=== PATIENT | male | born 2000 | race African-American/Black ===

== ENCOUNTER 2024-11-27 09:24 | Emergency (ER) | payer SELFPAY ==
[2024-11-27 09:28] VITALS: BP 126/77
--- NOTE | 2024-11-27 10:14 | ED.GENMED ---
History of Present Illness
General
Chief Complaint: Exposure-Chemical
Source: patient
Time Seen by Provider: 11/27/24 09:57
History of Present Illness
History of Present Illness:
23-year-old male with no significant past medical history presenting to the emergency department for evaluation after he was at work and cut a pipe, unbeknownst to him at the time, the pipe had Freon within it and was exposed to the Freon for about
15 minutes. Patient began to feel lightheaded and has a mild headache presently with the lightheadedness resolving but still with headache. Patient denies any other symptoms, states none of the Freon got onto his clothing or skin, no chest pain or
shortness of breath, no focal weakness or numbness, no other concerns. Patient did not take any medications prior to arrival
Past History
Past History
ED Past Medical History: None
ED Past Surgical History: None
Social History
Tobacco: Non-smoker
Alcohol: None
Drug: None
Personal: Single
Living: with family
Employment: Employed
Review of Systems
Review of Systems
All Other Systems: ROS reviewed and negative except as documented in HPI and ROS
Phy Exam
Physical Exam
Physical Exam:
GENERAL: Alert , in no apparent distress
HEAD: NCAT
EYE: conjunctiva clear
NECK: Supple
ENT: o/p clr, mmm.
CARDIAC: Regular rate and rhythm
LUNGS: Clear breath sounds bilaterally, no acute respiratory distress, no wheezes/rales/rhonchi
NEUROLOGICAL: Alert and oriented
SKIN: Warm and dry, skin intact.
MUSCULOSKELETAL: well perfused.
PSYCH: Normal and appropriate interaction.
Scores
Heart Failure Risk
Heart Failure Risk Score: Not Applicable
Heart Score for Chest Pain Patients
STEMI patient?: Not applicable
Withdrawal Assessment of Alcohol
Withdrawal Assessment Completed?: Not applicable
Course
Orders/Labs/Results
Orders:
Orders
11/27/24 10:06
Ibuprofen [Motrin] 600 mg PO NOW STA
11/27/24 10:10
Electrocardiogram (*1) Urgent
Reason for Study: Other
Other Reason for Exam: inhalation exposure
EKG- Treatment ONCE
11/27/24 10:24
Complete Blood Count/With Diff Urgent
Comprehensive Metabolic Panel Urgent
Abnormal Lab Results
11/27/24
10:24
MCH 26.9 L pg
(27.0-31.0)
RDW 14.8 H %
(11.5-14.5)
Absolute Monos (auto) 0.7 H 10^3/uL
(0.1-0.6)
Monocytes % 10.5 H %
(1.7-9.3)
Carbon Dioxide 33 H mmol/L
(22-30)
AST 97 H U/L
(17-59)
ALT 68 H U/L
(0-50)
11/27/24 10:24
11/27/24 10:24
Vital Signs
Initial and Last Documented VS:
Initial Vital Signs
Temp Pulse Resp BP Pulse Ox
98.0 F 71 16 126/77 98
11/27/24 09:28 11/27/24 09:28 11/27/24 09:28 11/27/24 09:28 11/27/24 09:28
Last Documented Vital Signs
Temp Pulse Resp BP Pulse Ox
98.0 F 78 16 107/63 100
11/27/24 09:28 11/27/24 11:47 11/27/24 11:47 11/27/24 11:47 11/27/24 11:47
MDM/Problems Addressed
Differential Diagnosis Includes:
freon exposure, carbon monoxide poisoning, no concern for pneumonitis
MDM/Problems Addressed:
23-year-old male presenting to the emergency department for evaluation after mildly prolonged exposure to Freon, subsequently developed lightheadedness and headache with the lightheadedness resolved. Still having headache here. Hemodynamically
stable and in no acute distress. Will check basic labs and treat headache with Motrin. Will observe for any further symptomatic complications.
*Pulse Oximetry
Patient hypoxic: no
*EKG
Interpreted by ED Provider?: Yes
Heart Rate: 78
Rate: normal
Rhythm: sinus arrhythmia
[place]: normal axis
Ischemia: no ischemia
*Critical Care Note
Total Time (30-74mins, 75-104mins- exclusive of procedures): Not Applicable
Patient Management
Escalation/DeEscalation of care consider admission/obs:
On continuous monitoring patient continues to feel well. No further concerns at this time. Mildly elevated AST and ALT on labs of undetermined significance. Do not feel acutely related to problem causing patient to come to the ER. Patient stable
for discharge home and aware of return precautions.
ED Attending Note
-
Portions of this chart may have been created with voice recognition software.� Occasional wrong word or��sound alike� substitutions may have occurred due to the inherent limitations of voice recognition software.
Discharge Plan
Departure
Patient Disposition: Home (Routine Discharge)
Date of Disposition: 11/27/24
Time of Disposition: 11:57
Patient with high blood pressure during this ER visit?: No
Discharge Problem:
Chemical exposure, Headache
Referrals:
NONE,* [Family Provider] -
Stand Alone Forms: Return to Work
Activity Restrictions/Additional Instructions:
Return to the ER with any worsening headaches, difficulty breathing or any other concerns.
Interventions
Interventions:
*Risk Screen - Suicide Last Done: 11/27/24 09:28
*Neglect/Abuse Screening Last Done: 11/27/24 09:28
*Nursing Disposition Last Done: 11/27/24 12:11
ED-EENT Assessment Last Done: 11/27/24 10:05
ED- Pulmonary Assessment Last Done: 11/27/24 10:03
ED-Skin Assessment Last Done: 11/27/24 10:03
Discharge Date and Time
Discharge Date/Time: 11/27/24 12:11
Print Language: SYRIAC
[2024-11-27] MEDS: MOTRIN 600 MG PO (10:17)
[2024-11-27 10:33] LABS: % Basophils 0.9 % (0-2); % Eosinophils 4.6 % (0-6); % Immature Granulocytes 0.4 % (0-0.5); % Lymphocytes 22.1 % (20.5-51.1); % Monocytes 10.5 % (1.7-9.3); % Neutrophils 61.5 % (42.2-75.2); Absolute Basophils 0.1 10^3/uL (0-0.2); Absolute Eosinophils 0.3 10^3/uL (0-0.7); Absolute Lymphocytes 1.5 10^3/uL (1.2-3.4); Absolute Monocytes 0.7 10^3/uL (0.1-0.6); Absolute Neutrophils 4.2 10^3/uL (1.4-6.5); Hematocrit 47.1 % (39.0-52.0); Hemoglobin 15.6 g/dL (13.0-18.0); Mean Corp Hgb Conc. 33.1 g/dL (33.0-37.0); Mean Corpuscular Hgb 26.9 pg (27.0-31.0); Mean Corpuscular Volume 81.1 fL (80.0-94.0); Mean Platelet Volume 9.1 fL (7.4-10.4); Nucleated Red Blood Cells % 0 % (-); Platelet Count 188 10^3/uL (130-400); Red Blood Cell Count 5.81 10^6/uL (4.70-6.10); Red Cell Dist. Width 14.8 % (11.5-14.5); White Blood Cell Count 6.8 10^3/uL (4.8-10.8)
[2024-11-27 10:44] LABS: ALT (SGPT) 68 U/L (0-50); AST (SGOT) 97 U/L (17-59); Albumin 4.8 g/dl (3.5-5.0); Alkaline Phosphatase 67 U/L (38-126); Blood Urea Nitrogen 10 mg/dl (9-20); Calcium 9.3 mg/dl (8.4-10.2); Carbon Dioxide 33 mmol/L (22-30); Chloride 100 mmol/L (98-107); Glucose 82 mg/dl (70-99); Potassium 4.5 mmol/L (3.5-5.1); Sodium 140 mmol/L (135-145); Total Bilirubin 0.8 mg/dl (0.2-1.3); Total Protein 7.8 g/dl (6.3-8.2); eGFR > 60.00
[2024-11-27 11:47] VITALS: BP 107/63
== END 2024-11-27 12:11 | disposition home or self-care (01) ==
LOC: EMR 09:24
PROVIDERS: Physician Assistant Medical; EMERGENCY PHYSICIAN Emergency Medicine
DX: Z77.098 Contact with and (suspected) exposure to other hazardous, chiefly nonmedicinal, chemicals (principal); R51.9 Headache, unspecified
CPT/HCPCS: 99283; 80053; 85025; 93005